=== PATIENT | male | born 1940 | race Caucasian/White ===

== ENCOUNTER 2022-12-23 10:00 | Outpatient (OUT) | payer MEDICARE, OTHER, SELFPAY ==
[2022-12-23 10:59] LABS: Basophils Absolute Auto 0.1 10^3/uL (0.0-0.1); Basophils Percent Auto 0.7 % (0.2-2.0); Eosinophils Absolute Auto 0.1 10^3/uL (0.0-0.7); Hematocrit 48.2 % (42.0-54.0); Hemoglobin 15.4 g/dL (14.0-18.0); Immature Granulocytes Abs Auto 0.02 10^3/uL (0.00-0.03); Immature Granulocytes Pct Auto 0.2 % (0.0-0.5); Lymphocytes Percent Auto 22.6 % (20.5-60.0); Mean Corpuscular Hemoglobin 29.3 pg (25.9-34.0); Mean Corpuscular Volume 91.8 fL (80.0-94.0); Mean Platelet Volume 11.7 fL (9.5-13.5); Monocytes Percent Auto 11.6 % (1.7-12.0); Neutrophils Absolute Auto 5.6 10^3/uL (1.4-6.5); Neutrophils Percent Auto 63.9 % (43.0-75.0); Platelet Count 260 10^3/uL (150-450); Red Blood Count 5.25 10^6/uL (4.70-6.10); Red Cell Distribution Width 13.7 % (11.0-15.0); White Blood Count 8.7 10^3/uL (4.0-11.0)
[2022-12-23 11:59] LABS: Alanine Aminotransferase 20 U/L (16-63); Albumin Globulin Ratio 0.9; Albumin Level 3.8 g/dL (3.4-5.0); Alkaline Phosphatase 74 U/L (46-116); Anion Gap 9.9; Aspartate Amino Transferase 29 U/L (15-37); BUN Creatinine Ratio 12.4; Bilirubin Total 0.6 mg/dL (0.2-1.0); Calcium 9.4 mg/dL (8.5-10.1); Chloride 103 mmol/L (98-107); Chol HDL Ratio 4.2; Cholesterol 194 mg/dL (<=200); Estimated GFR (African America >60 (>=60); Estimated GFR (Non-African Ame >60 (>=60); Globulin 4.3 g/dL; Glucose 86 mg/dL (74-106); HDL Cholesterol 46 mg/dL (40-60); LDL Cholesterol Calculated 131.2 mg/dL; Potassium 4.9 mmol/L (3.5-5.1); Sodium 139 mmol/L (136-145); Total Protein 8.1 g/dL (6.4-8.2); Triglycerides 84 mg/dL (<=150); VLDL CHOLESTEROL 16.8 mg/dL
== END 2022-12-23 10:01 ==
LOC: LAB 10:08
PROVIDERS: PCP Internal Medicine
DX: R94.39 Abnormal result of other cardiovascular function study (principal)
CPT/HCPCS: 36415; 80053; 80061; 85025

== ENCOUNTER 2023-01-05 13:48 | Outpatient (OUT) | payer MEDICARE, OTHER, SELFPAY ==
--- NOTE | 2023-01-05 14:00 | CA_ITS ---
Patient: SUKUMAR BARRERA Exam Date: 01/05/2023 : 1940 Gender:M Ordering : MRS. JALEN WILLETT NP Admission #: [id number] Family : Order #: [id number] CLICK HERE TO VIEW EXAM ECHOCARDIOGRAM REPORT PROCEDURE: CA ECHO DOPPLER COMPLETE INDICATIONS: Abnormal ECG, hypertension COMPARISON: None. DESCRIPTION: COMPLETE ECHOCARDIOGRAM Real-time transthoracic echocardiography with 2D, M-mode, spectral and color flow Doppler performed. QUALITY: Technical quality was good. LEFT VENTRICLE: Normal chamber size. Proximal septal hypertrophy (sigmoid septum). LV EF: Normal left ventricular ejection fraction, (>55%). DIASTOLIC: Grade 2 diastolic dysfunction. ATRIAL SEPTUM: Visually appears intact. LEFT ATRIUM: Mildly dilated. RIGHT ATRIUM: Normal chamber size. RIGHT VENTRICLE: Normal chamber size. Normal right ventricular systolic function. TRICUSPID VALVE: Normal mobility and thickness. No stenosis with trivial regurgitation. Doppler studies reveal mildly (35-45) elevated right sided pressures. RVSP 39 mmHg MITRAL VALVE: Mildly thickened with normal mobility. No evidence of mitral valve stenosis. There is no mitral annular calcification. Trivial mitral regurgitation. AORTIC VALVE: Normal trileaflet appearance. Mildly calcified aortic valve. Mildly diminished mobility. The left coronary cusp is calcified with restricted mobility. No evidence of aortic valve stenosis. DVI 0.7. No aortic regurgitation. AORTIC ROOT: Normal diameter and appearance. PULMONIC VALVE: Normal thickness and mobility. No stenosis. No regurgitation. PERICARDIUM: No evidence of pericardial effusion. IVC: Not well visualized. PLEURA: CONCLUSION: 1. Normal left ventricular systolic function. LVEF is 55 to 60%. 2. Normal right ventricular size and systolic function. 3. Grade 2 diastolic dysfunction. 4. Mildly calcified aortic valve without significant stenosis. 5. Mildly elevated right-sided pressures. Adult Echocardiography Procedure Report Left Ventricle LVEDD (3.7 - 5.6 cm): 4.17 cm LVESD (2.2 - 4.0 cm): 2.87 cm LVIVS thickness (0.6 - 1.2 cm): 1.38 cm LVPW thickness (0.5 - 1.0 cm): 0.84 cm e': 0.07 m/s E - e': 12.41 LVOT Max Gradient: 2.92 mm[Hg] LVOT Area (cm2): 0.85 m/s Peak Velocity (LVOT): 0.85 m/s Mean Velocity (LVOT): 0.54 m/s LVOT Diameter 1.73 cm Left Atrium Left Atrium Systolic Dimension: 3.16 cm Mitral Valve MV E to A Ratio: 0.98 Mitral Valve A-Wave Peak Velocity: 0.86 m/s Mitral Valve E-Wave Peak Velocity: 0.84 m/s Right Ventricle Aorta AO Root Diam: 2.82 cm Ascending Ao Diam: 2.57 cm Aortic Valve AoV Area (Peak Eliel): 1.67 cm2, 1.67 cm2, 1.41 cm2, 1.41 cm2 AoV Area (VTI): 1.41 cm2, 1.41 cm2 Peak Velocity(Antegrade Flow): 1.21 m/s, 1.43 m/s Peak Gradient(Antegrade Flow): 8.14 mm[Hg], 5.83 mm[Hg] Mean Velocity(Antegrade Flow): 0.83 m/s Mean Gradient(Antegrade Flow): 3.22 mm[Hg] Velocity Time Integral: 27.92 cm Tricuspid Valve Peak Velocity (Regurgitant Flow): 1.89 m/s, 3.01 m/s Pulmonic Valve Mean Gradient: 3.54 mm[Hg] Mean Velocity: 0.90 m/s Peak Velocity: 1.27 m/s, 1.11 m/s Peak Gradient: 6.49 mm[Hg], 4.92 mm[Hg] Right Atrium Right Atrium Systolic Pressure: 41.95 ml, 41.95 ml Dictated by: Jesus Valdez M.D. on 01/05/2023 at 18:34 Approved by: Jesus Valdez M.D. on 01/05/2023 at 18:39
== END 2023-01-05 13:49 | disposition home or self-care (01) ==
LOC: CARD 13:49
PROVIDERS: PCP Internal Medicine
DX: R94.31 Abnormal electrocardiogram [ECG] [EKG] (principal); I51.9 Heart disease, unspecified; I35.8 Other nonrheumatic aortic valve disorders
CPT/HCPCS: 93306

== ENCOUNTER 2023-05-02 11:55 | Outpatient (OUT) | payer MEDICARE, OTHER, SELFPAY ==
--- NOTE | 2023-05-02 12:27 | XR_ITS ---
The [address] [address] Patient Name: SUKUMAR BARRERA MRN: [id number] date: 1940 Sex: M Assigned Patient Location: [facility] Current Patient Location: Accession/Order Number: [id number] Exam Date: 05/02/2023 13:19 Report Date: 05/03/2023 08:25 At the request of: CONNER FENTON Procedure: XR chest 2V EXAM: CHEST 2 VIEWS HISTORY: Preop exam TECHNIQUE: PA and lateral views chest. COMPARISON: None. FINDINGS: The lungs are clear. There is no focal lung consolidation, pleural effusion or pneumothorax. Pulmonary vasculature is within normal limits. 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 XR/XR chest 2V IMPRESSION: 1. No acute cardiopulmonary disease. Electronically authenticated by: TAMMIE POOLE Date: 05/03/2023 08:25
[2023-05-02 13:12] LABS: Basophils Absolute Auto 0.1 10^3/uL (0.0-0.1); Basophils Percent Auto 0.7 % (0.2-2.0); Eosinophils Absolute Auto 0.1 10^3/uL (0.0-0.7); Eosinophils Percent Auto 1.5 % (0.9-7.0); Hematocrit 35.8 % (42.0-54.0); Hemoglobin 11.2 g/dL (14.0-18.0); Immature Granulocytes Abs Auto 0.01 10^3/uL (0.00-0.03); Immature Granulocytes Pct Auto 0.1 % (0.0-0.5); Lymphocytes Absolute Auto 1.7 10^3/uL (1.2-3.8); Lymphocytes Percent Auto 20.5 % (20.5-60.0); Mean Corpuscular HGB Conc 31.3 g/dL (29.9-35.2); Mean Corpuscular Volume 89.5 fL (80.0-94.0); Mean Platelet Volume 11.4 fL (9.5-13.5); Monocytes Percent Auto 11.8 % (1.7-12.0); Neutrophils Absolute Auto 5.4 10^3/uL (1.4-6.5); Neutrophils Percent Auto 65.4 % (43.0-75.0); Platelet Count 238 10^3/uL (150-450); White Blood Count 8.2 10^3/uL (4.0-11.0)
[2023-05-02 13:22] LABS: Anion Gap 10.2; BUN Creatinine Ratio 15.5; Calcium 8.8 mg/dL (8.5-10.1); Carbon Dioxide 29.3 mmol/L (21.0-32.0); Chloride 103 mmol/L (98-107); Estimated GFR (African America >60 (>=60); Estimated GFR (Non-African Ame >60 (>=60); Glucose 97 mg/dL (74-106); Potassium 3.5 mmol/L (3.5-5.1); Sodium 139 mmol/L (136-145)
[2023-05-02 13:29] LABS: INR 1.05; Partial Thromboplastin Time 29.5 sec (22.3-36.2); Prothrombin Time 11.1 sec (9.0-11.6)
== END 2023-05-02 11:56 | disposition home or self-care (01) ==
LOC: PST 12:01
PROVIDERS: PCP Internal Medicine; Visit Provider Otolaryngology
DX: Z01.810 Encounter for preprocedural cardiovascular examination (principal); Z01.812 Encounter for preprocedural laboratory examination; R04.0 Epistaxis; Z79.01 Long term (current) use of anticoagulants; D64.9 Anemia, unspecified; I50.9 Heart failure, unspecified
CPT/HCPCS: 36415; 71046; 80048; 85025; 85610; 85730

== ENCOUNTER 2023-05-09 06:39 | Day surgery (SDC) | payer MEDICARE, OTHER, SELFPAY ==
[2023-05-02 13:02] VITALS: BP 151/75; PULSE 77; RESP 16; TEMP 36.3; O2SAT 98; BMI 27.8
[2023-05-09] VITALS (11 sets, daily range): BP systolic 105–137; BP diastolic 55–77; PULSE 64–73; RESP 14–22; TEMP 35.7; O2SAT 90–99; BMI 30.8
--- NOTE | 2023-05-09 | OP_ITS ---
OPERATION DATE: ??05/09/2023 PRIMARY CARE PHYSICIAN:? Gregorio Nation M.D. SURGEON:? Marie Goodman M.D. PREOPERATIVE DIAGNOSIS:? Recurrent epistaxis. POSTOPERATIVE DIAGNOSIS:? Recurrent epistaxis. PROCEDURE:? Right nasal endoscopy and cautery. ANESTHESIA:? General endotracheal. COMPLICATIONS:? None. FINDINGS:? 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 INDICATIONS:? This 82-year-old man presented with a long history of recurrent right sided epistaxis, and was noted to have the above abnormality in his nose in the office.? He was brought to the operating room for definitive treatment. PROCEDURE:? Patient identified in the holding area and taken back to the OR where he was placed in the supine position.? After induction of general endotracheal anesthesia, the right nose was approached with a 30 degree nasal endoscope.? The above findings were noted.? The septal fistula and the venous plexus were cauterized with suction Bovie.? There was slight bleeding, which was easily controlled.? Once the bleeding was controlled and the vessels were cauterized, antibiotic ointment was placed in the nose, and the patient was awakened and taken to the recovery room in good condition. MARY
[2023-05-09] MEDS: LACTATED RINGER'S SOLUTION 1,000 ML 50 ML IV (07:09)
[2023-05-09] MEDS: BACITRACIN OINTMENT 28.4 GM TUBE 1 APPLIC TOPICAL (08:22)
== END 2023-05-09 09:40 | disposition home or self-care (01) ==
PROVIDERS: PCP Internal Medicine; Visit Provider Otolaryngology
PROC: (CPT 31238; principal; 2023-05-09 07:50)
DX: R04.0 Epistaxis (principal); Z79.01 Long term (current) use of anticoagulants; D64.9 Anemia, unspecified; I50.9 Heart failure, unspecified; I11.0 Hypertensive heart disease with heart failure; I65.23 Occlusion and stenosis of bilateral carotid arteries; B19.10 Unspecified viral hepatitis B without hepatic coma; Z95.1 Presence of aortocoronary bypass graft
CPT/HCPCS: 31238; 36415; J2704